=== PATIENT | male | born 1985 | race Two or more races ===

== ENCOUNTER → 2020-05-04 | Emergency (ER) | payer OTHER ==
[~2020-05-04] VITALS: Ht 177.8 cm; Wt 77.1 kg
== END | disposition home or self-care (01) ==
LOC: ER 16:30
DX: S01.122A Laceration with foreign body of left eyelid and periocular area, initial encounter (principal); W18.09XA Striking against other object with subsequent fall, initial encounter; Y93.89 Activity, other specified; Y92.89 Other specified places as the place of occurrence of the external cause; Y99.8 Other external cause status